=== PATIENT | female | born 1975 | race Two or more races ===

== ENCOUNTER 2017-12-24 17:38 | Emergency (ER) | payer SELFPAY ==
[~2017-12-24] VITALS: Ht 165.1 cm; Wt 113.0 kg
[2017-12-24] MEDS ORDERED: IPRATROPIUM BROMIDE (0.02%) 0.5MG/2.5ML NEB HHN STA (19:24)
[2017-12-24] MEDS ORDERED: ALBUTEROL (0.083%) 2.5MG/3ML NEB HHN STA (19:24)
[2017-12-24] MEDS ORDERED: PREDNISONE 20MG TABLET PO STA (19:24)
[2017-12-24] MEDS ORDERED: DIPHENHYDRAMINE 25MG CAPSULE PO ONE (19:30)
[2017-12-24 22:42] VITALS: BP 120/70
== END 2017-12-25 00:22 | disposition home or self-care (01) ==
LOC: ER 17:38
DX: J45.901 Unspecified asthma with (acute) exacerbation (principal)
CPT/HCPCS: 93005; 94640; 99284; J7512; J7611; Z7610; Q0163

== ENCOUNTER 2019-10-14 18:21 | Emergency (ER) | payer MEDICAID ==
[~2019-10-14] VITALS: Ht 165.1 cm; Wt 65.0 kg
[2019-10-14 18:35] VITALS: BP 129/82
== END 2019-10-14 21:06 | disposition left against medical advice (07) ==
LOC: ER 20:08
DX: Z53.21 Procedure and treatment not carried out due to patient leaving prior to being seen by health care provider (principal)